=== PATIENT | female | born 1985 | race Caucasian/White ===

== ENCOUNTER 2024-08-29 11:59 | Emergency (ER) | payer OTHER ==
[2024-08-29 12:20] VITALS: RESP 20
--- NOTE | 2024-08-29 12:26 | ED ---
General Adult HPI - General Chief complaint: Shortness of Breath Stated complaint: Chest pain,Vomiting Time Seen by Provider: 08/29/24 12:15 Source: patient, EMS, RN notes reviewed Mode of arrival: EMS Limitations: no limitations - History of Present Illness Initial comments: This is a 39-year-old female with a history of pancreatitis presenting to the emergency department via EMS from [facility] with multiple complaints. Patient states that over the past 2 weeks she has been experiencing a productive cough, body aches, chills, shortness of breath, chest pain, and heart palpitations. Patient states that this morning when she woke up she was concerned that she had extremity edema of her bilateral lower extremities and of her hands. States she has been experiencing intermittent hemoptysis. She denies send prolonged travel, recent surgeries, history of DVT or PE. - Related Data Home Medications Medication Instructions Recorded Confirmed Acetaminophen Tab [Tylenol] 650 mg PO Q4H 08/29/24 08/29/24 Benzocaine 20 % Gel [Orajel] 1 applic MM DIRECTED PRN 08/29/24 08/29/24 Calcium Phos/D3/Magnesium/Zinc 1 tab PO TID PRN 08/29/24 08/29/24 [Rcbbwij-Xgc-Eltj-Vitamin D3] Chlorpheniramine Maleate 4 mg PO Q4H PRN 08/29/24 08/29/24 [Chlor-Trimeton] Gabapentin [Neurontin] 100 mg PO TID 08/29/24 08/29/24 Hyoscyamine Sulfate [Levsin] 0.125 mg PO QID PRN 08/29/24 08/29/24 Ibuprofen [Motrin Ib] 600 mg PO Q6H PRN 08/29/24 08/29/24 Lidocaine Viscous [Xylocaine 1 applic MM DIRECTED PRN 08/29/24 08/29/24 Viscous 2%] Melatonin 10 mg PO HS 08/29/24 08/29/24 Mirtazapine [Remeron] 15 mg PO HS 08/29/24 08/29/24 Multivitamins, Thera [Multivitamin 1 tab PO DAILY 08/29/24 08/29/24 (formulary)] Omeprazole 20 mg PO DAILY 08/29/24 08/29/24 Thiamine [Vitamin B-1] 100 mg PO DAILY 08/29/24 08/29/24 Tigan 200mg/2ml 200 mg IM Q6HR PRN 08/29/24 08/29/24 busPIRone HCl [Buspar] 10 mg PO TID 08/29/24 08/29/24 guaiFENesin SYRUP 100MG/5ML 200 mg PO Q4H PRN 08/29/24 08/29/24 [Robitussin] ondansetron HCL [Zofran] 8 mg PO Q6H PRN 08/29/24 08/29/24 Previous Rx's Medication Instructions Recorded Amoxic-Pot Clav 875-125Mg 1 tab PO Q12HR #20 tab 08/29/24 [Augmentin 875-125] Allergies Allergy/AdvReac Type Severity Reaction Status Date / Time haloperidol [From Haldol] Allergy Unknown Verified 08/29/24 13:31 propranolol [From Inderal LA] Allergy Unknown Verified 08/29/24 13:31 tizanidine Allergy Unknown Verified 08/29/24 13:31 Review of Systems ROS Statement: Those systems with pertinent positive or pertinent negative responses have been documented in the HPI. ROS Other: All systems not noted in ROS Statement are negative. Past Medical History Additional Past Medical History / Comment(s): pancreatitis Past Surgical History: Cholecystectomy Past Psychological History: Anxiety Smoking Status: Current every day smoker Past Alcohol Use History: Abuse, Daily, Heavy Past Drug Use History: None Reported General Exam - General Exam Comments Initial Comments: Visual Physical Exam Vital signs reviewed General: Well-appearing, nontoxic, no acute distress. Head: Normocephalic, atraumatic Eyes: PERRLA, EOMI ENT: Airway patent Chest: Nonlabored breathing Skin: No visual rash, normal skin tone Neuro: Alert and oriented 3 Musculoskeletal: No gross abnormalities Limitations: no limitations General appearance: alert, in no apparent distress Eye exam: Present: normal appearance, PERRL, EOMI. Absent: scleral icterus, conjunctival injection, periorbital swelling Neck exam: Present: normal inspection. Absent: tenderness, meningismus, lymphadenopathy Respiratory exam: Present: normal lung sounds bilaterally. Absent: respiratory distress, wheezes, rales, rhonchi, stridor Cardiovascular Exam: Present: normal rhythm, tachycardia, normal heart sounds. Absent: systolic murmur, diastolic murmur, rubs, gallop, clicks GI/Abdominal exam: Present: soft, normal bowel sounds. Absent: distended, tenderness, guarding, rebound, rigid Extremities exam: Present: normal inspection, full ROM, normal capillary refill, other (bilateral LE peripheral edema, non-pitting). Absent: tenderness, pedal edema, joint swelling, calf tenderness Back exam: Present: normal inspection Neurological exam: Present: alert, oriented X3, CN II-XII intact Course Vital Signs 08/29/24 08/29/24 12:09 14:41 Temperature 97.9 F 98.7 F Pulse Rate 115 H 108 H Respiratory 20 20 Rate Blood Pressure 140/93 121/85 O2 Sat by Pulse 98 99 Oximetry Medical Decision Making - Medical Decision Making Was pt. sent in by a medical professional or institution (, PA, [employer] CONTR[employer] EQUIPMENT REPAIRER, urgent care, hospital, or [facility]...) When possible be specific @ -No Did you speak to anyone other than the patient for history (EMS, parent, family, police, friend...)? What history was obtained from this source @ -No Did you review nursing and triage notes (agree or disagree)? Why? @ -I reviewed and agree with nursing and triage notes Were old charts reviewed (outside hosp., previous admission, EMS record, old EKG, old radiological studies, urgent care reports/EKG's, [facility] records)? Report findings @ -No old charts were reviewed Differential Diagnosis (chest pain, altered mental status, abdominal pain women, abdominal pain men, vaginal bleeding, weakness, fever, dyspnea, syncope, headache, dizziness, GI bleed, back pain, seizure, CVA, palpatations, mental health, musculoskeletal)? @ -Differential Dyspnea: Coronary syndrome, arrhythmia, tamponade, asthma, COPD, pulmonary embolism, pneumonia, pneumothorax, pulmonary effusion, anaphylaxis, diabetic ketoacidosis, flailed chest, pulmonary contusion, diaphragmatic rupture, anemia, neuromuscular, this is not meant to be an all-inclusive list. EKG interpreted by me (3pts min.). @ -Completed at 1319 sinus tachycardia with a ventricular rate of 110, MD interval 104, QRS 85, QTc 425. X-rays interpreted by me (1pt min.). @ -Chest x-ray possible early patchy pneumonia at the right lung base. CT interpreted by me (1pt min.). @ -None done U/S interpreted by me (1pt. min.). @ -None done What testing was considered but not performed or refused? (CT, X-rays, U/S, labs)? Why? @ -None What meds were considered but not given or refused? Why? @ -None Did you discuss the management of the patient with other professionals (professionals i.e. , PA, [employer] CONTR[employer] EQUIPMENT REPAIRER, lab, RT, psych nurse, social service technician, evidence technician, teacher, field artillery officer, director of casework department)? Give summary @ -No Was smoking cessation discussed for >3mins.? @ -No Was critical care preformed (if so, how long)? @ -No Were there social determinants of health that impacted care today? How? (Homelessness, low income, unemployed, alcoholism, drug addiction, transportation, low edu. Level, literacy, decrease access to med. care, longterm, rehab)? @ -No Was there de-escalation of care discussed even if they declined (Discuss DNR or withdrawal of care, Hospice)? DNR status @ -No What co-morbidities impacted this encounter? (DM, HTN, Smoking, COPD, CAD, Cancer, CVA, ARF, Chemo, Hep., AIDS, mental health diagnosis, sleep apnea, morbid obesity)? @ -None Was patient admitted / discharged? Hospital course, mention meds given and route, prescriptions, significant lab abnormalities, going to OR and other pertinent info. @ -Discharge. 39-year-old female with chest pain, shortness of breath, lower extremity peripheral edema. Initial evaluation patient noted to be tachycardic, afebrile. Patient will undergo cardiac workup. EKG remarkable for sinus tachycardia. Patient is noted to be anemic with a hemoglobin of 9.6 and hematocrit of 30.9. Patient states that she has a history of anemia and has undergone blood transfusion in the past however there has been no clear diagnosis as to what may have caused her anemia. She denies melena, hematochezia. Patient's cardiac enzymes nonelevated. D-dimer not elevated at 0.56. Viral testing including strep negative. Chest x-ray concerning for patc hy pneumonia at the right lung base. This is consistent with patient's prolonged symptoms of intermittent chills, productive cough. She is provided with initial dose of Rocephin emergency department and sent a course of mitten to pharmacy instructed to continue full course. All questions have been answered at bedside and strict return parameters discussed with the patient she is verbalized understanding. Discussed with Dr. Caceres Undiagnosed new problem with uncertain prognosis? @ -No Drug Therapy requiring intensive monitoring for toxicity (Heparin, Nitro, Insulin, Cardizem)? @ -No Were any procedures done? @ -No Diagnosis/symptom? @ -Pneumonia Acute, or Chronic, or Acute on Chronic? @ -Acute Uncomplicated (without systemic symptoms) or Complicated (systemic symptoms)? @ -Uncomplicated Side effects of treatment? @ -No Exacerbation, Progression, or Severe Exacerbation? @ -No Poses a threat to life or bodily function? How? (Chest pain, USA, DC, pneumonia, PE, COPD, DKA, ARF, appy, cholecystitis, CVA, Diverticulitis, Homicidal, Suicidal, threat to staff... and all critical care pts) @ -No - Lab Data Result diagrams: 08/29/24 13:03 08/29/24 13:03 Lab Results 08/29/24 08/29/24 08/29/24 Range/Units 13:03 13:03 13:03 WBC 5.1 (3.8-10.6) k/uL RBC 3.44 L (3.80-5.40) m/uL Hgb 9.6 L (11.4-16.0) gm/dL Hct 30.9 L (34.0-46.0) % MCV 89.8 (80.0-100.0) fL MCH 27.8 (25.0-35.0) pg MCHC 30.9 L (31.0-37.0) g/dL RDW 20.5 H (11.5-15.5) % Plt Count 174 (150-450) k/uL MPV 8.4 Neutrophils % 86 % Lymphocytes % 10 % Monocytes % 2 % Eosinophils % 0 % Basophils % 0 % Neutrophils # 4.4 (1.3-7.7) k/uL Lymphocytes # 0.5 L (1.0-4.8) k/uL Monocytes # 0.1 (0-1.0) k/uL Eosinophils # 0.0 (0-0.7) k/uL Basophils # 0.0 (0-0.2) k/uL Hypochromasia Marked Anisocytosis Moderate PT 13.0 H (10.0-12.5) sec INR 1.2 H (<1.2) APTT 28.2 (22.0-30.0) sec D-Dimer 0.56 (<0.60) mg/L FEU Sodium 138 (137-145) mmol/L Potassium 3.7 (3.5-5.1) mmol/L Chloride 110 H (98-107) mmol/L Carbon Dioxide 21 L (22-30) mmol/L Anion Gap 7 mmol/L BUN 9 (7-17) mg/dL Creatinine 0.42 L (0.52-1.04) mg/dL Est GFR (CKD-EPI)AfAm >90 (>60 ml/min/1.73 sqM) Est GFR (CKD-EPI)NonAf >90 (>60 ml/min/1.73 sqM) Glucose 161 H (74-99) mg/dL Calcium 9.0 (8.4-10.2) mg/dL Magnesium 1.7 (1.6-2.3) mg/dL Total Bilirubin 0.9 (0.2-1.3) mg/dL AST 81 H (14-36) U/L ALT 33 (4-34) U/L Alkaline Phosphatase 134 H (38-126) U/L Troponin I (0.000-0.034) ng/mL NT-Pro-B Natriuret Pep 133 pg/mL Total Protein 7.7 (6.3-8.2) g/dL Albumin 3.6 (3.5-5.0) g/dL Lipase 11 L (23-300) U/L Influenza Type A (PCR) (Not Detectd) Influenza Type B (PCR) (Not Detectd) RSV (PCR) (Not Detectd) SARS-CoV-2 (PCR) (Not Detectd) Group A Strep (PCR) (Not Detectd) 08/29/24 08/29/24 08/29/24 Range/Units 13:03 13:03 13:03 WBC (3.8-10.6) k/uL RBC (3.80-5.40) m/uL Hgb (11.4-16.0) gm/dL Hct (34.0-46.0) % MCV (80.0-100.0) fL MCH (25.0-35.0) pg MCHC (31.0-37.0) g/dL RDW (11.5-15.5) % Plt Count (150-450) k/uL MPV Neutrophils % % Lymphocytes % % Monocytes % % Eosinophils % % Basophils % % Neutrophils # (1.3-7.7) k/uL Lymphocytes # (1.0-4.8) k/uL Monocytes # (0-1.0) k/uL Eosinophils # (0-0.7) k/uL Basophils # (0-0.2) k/uL Hypochromasia Anisocytosis PT (10.0-12.5) sec INR (<1.2) APTT (22.0-30.0) sec D-Dimer (<0.60) mg/L FEU Sodium (137-145) mmol/L Potassium (3.5-5.1) mmol/L Chloride (98-107) mmol/L Carbon Dioxide (22-30) mmol/L Anion Gap mmol/L BUN (7-17) mg/dL Creatinine (0.52-1.04) mg/dL Est GFR (CKD-EPI)AfAm (>60 ml/min/1.73 sqM) Est GFR (CKD-EPI)NonAf (>60 ml/min/1.73 sqM) Glucose (74-99) mg/dL Calcium (8.4-10.2) mg/dL Magnesium (1.6-2.3) mg/dL Total Bilirubin (0.2-1.3) mg/dL AST (14-36) U/L ALT (4-34) U/L Alkaline Phosphatase (38-126) U/L Troponin I <0.012 (0.000-0.034) ng/mL NT-Pro-B Natriuret Pep pg/mL Total Protein (6.3-8.2) g/dL Albumin (3.5-5.0) g/dL Lipase (23-300) U/L Influenza Type A (PCR) Not Detected (Not Detectd) Influenza Type B (PCR) Not Detected (Not Detectd) RSV (PCR) Not Detected (Not Detectd) SARS-CoV-2 (PCR) Not Detected (Not Detectd) Group A Strep (PCR) NOT DETECTED (Not Detectd) Disposition Clinical Impression: Pneumonia Disposition: HOME SELF-CARE Condition: Good Instructions (If sedation given, give patient instructions): Community Acquired Pneumonia (ED) Additional Instructions: Please return to the Emergency Department if symptoms worsen or any other concerns. Complete full course of antibiotics as prescribed. Prescriptions: Amoxic-Pot Clav 875-125Mg [Augmentin 875-125] 1 tab PO Q12HR #20 tab Is patient prescribed a controlled substance at d/c from ED?: No Referrals: Nonstaff,Physician [Primary Care Provider] - 1-2 days Time of Disposition: 14:17
--- NOTE | 2024-08-29 13:10 | XR ---
EXAMINATION TYPE: XR chest 2V DATE OF EXAM: 08/29/2024 12:38 PM COMPARISON: None CLINICAL INDICATION: Female, 39 years old with history of shortness of breath, difficulty breathing, , TECHNIQUE: PA and lateral views FINDINGS: The cardiomediastinal silhouette, aorta, and pulmonary vasculature are within normal limits. There is patchy opacity at the right lung base. No other consolidation or pleural effusion. IMPRESSION: Possible early patchy pneumonia at the right lung base. Correlate with symptoms. [facility], , 08/29/2024 1:08 PM
[2024-08-29 13:24] LABS: Anisocytosis Moderate; Basophils % (A) 0 %; Eosinophils % (A) 0 %; HCT 30.9 % (34.0-46.0); HGB 9.6 gm/dL (11.4-16.0); Hypochromasia Marked; Lymphocytes # (A) 0.5 k/uL (1.0-4.8); Lymphocytes % (A) 10 %; MCH 27.8 pg (25.0-35.0); MCHC 30.9 g/dL (31.0-37.0); MCV 89.8 fL (80.0-100.0); Mean Platelet Volume 8.4; Monocytes # (A) 0.1 k/uL (0-1.0); Monocytes % (A) 2 %; Neutrophils # (A) 4.4 k/uL (1.3-7.7); Neutrophils % (A) 86 %; Platelet Count 174 k/uL (150-450); RBC 3.44 m/uL (3.80-5.40); RDW 20.5 % (11.5-15.5); WBC 5.1 k/uL (3.8-10.6)
[2024-08-29 13:41] LABS: INR 1.2 (<1.2); Partial Thromboplastin Time 28.2 sec (22.0-30.0)
[2024-08-29 13:48] LABS: ALT 33 U/L (4-34); AST 81 U/L (14-36); African American GFR (CKD) >90 (>60 ml/min/1.73 sqM); Albumin 3.6 g/dL (3.5-5.0); Alkaline Phosphatase 134 U/L (38-126); Anion Gap 7 mmol/L; Blood Urea Nitrogen 9 mg/dL (7-17); Carbon Dioxide 21 mmol/L (22-30); Chloride 110 mmol/L (98-107); Glucose 161 mg/dL (74-99); Lipase 11 U/L (23-300); Magnesium 1.7 mg/dL (1.6-2.3); Non-African American GFR(CKD) >90 (>60 ml/min/1.73 sqM); Potassium 3.7 mmol/L (3.5-5.1); Sodium 138 mmol/L (137-145); Total Bilirubin 0.9 mg/dL (0.2-1.3); Total Protein 7.7 g/dL (6.3-8.2)
[2024-08-29 13:57] LABS: NT-Pro-B-Type Natriuretic Pept 133 pg/mL
[2024-08-29 14:43] VITALS: BP 121/85; PULSE 108
[2024-08-29] MEDS: cefTRIAXone IN SWFI 1,000 MG/10 ML SYRINGE IVP STA (14:43)
[2024-08-29 14:44] VITALS: TEMP 98.7
== END 2024-08-29 15:10 | disposition home or self-care (01) ==
LOC: EC 11:59
DX: J18.9 Pneumonia, unspecified organism (principal); F17.200 Nicotine dependence, unspecified, uncomplicated; Z88.8 Allergy status to other drugs, medicaments and biological substances
CPT/HCPCS: 36415; 93005; 87651; 85379; 83880; 80053; 83690; 83735; 84484; 85025; 85610; 85730; 87636; 71046; 99285; 96374; J0696